=== PATIENT | female | born 1990 | race Caucasian/White ===

== ENCOUNTER 2018-01-20 03:37 | Emergency (ER) | payer BC ==
[~2018-01-20] VITALS: Ht 157.5 cm; Wt 66.7 kg
[2018-01-20 03:54] VITALS: Ht 157.5 cm; Wt 66.7 kg
[2018-01-20 04:26] LABS: BASOPHIL % 0.4 % (0-2); PLATELET COUNT 400 x10^3mcL (130-400)
[2018-01-20 04:27] LABS: CALCIUM 8.9 mg/dL (8.5-10.1); CARBON DIOXIDE 21.7 mmol/L (21-32); CHLORIDE SERUM 106 mmol/L (98-107); CREATININE SERUM 0.8 mg/dL (0.6-1.0); GFR1 > 60 mL/min; GLUCOSE SERUM 108 mg/dL (74-106); POTASSIUM SERUM 4.1 mmol/L (3.5-5.1); SODIUM SERUM 141 mmol/L (136-145)
[2018-01-20 04:30] LABS: RED CELL DISTRIBUTION WIDTH 14.6 % (11.5-14.5)
[2018-01-20 04:32] LABS: ALBUMIN 3.4 g/dL (3.4-5.0); ALKALINE PHOSPHATASE 85 U/L (46-116); AST/SGOT 15 U/L (15-37); BILIRUBIN TOTAL 0.34 mg/dL (0.20-1.00); LIPASE 145 IU/L (73-393); TOTAL PROTEIN, SERUM 7.5 g/dL (6.4-8.2)
[2018-01-20 04:33] LABS: ALT/SGPT < 6.0 U/L (14-59)
[2018-01-20 05:51] LABS: UA SPECIFIC GRAVITY >=1.030 (1.005-1.035); microscopic required? YES; urine erythrocyte NEGATIVE (NEGATIVE)
[2018-01-20 08:27] VITALS: BP 107/71
== END 2018-01-20 08:27 | disposition home or self-care (01) ==
LOC: ED 03:37
PROVIDERS: Emergency Medicine
DX: N76.0 Acute vaginitis (principal); R10.13 Epigastric pain; R19.7 Diarrhea, unspecified
CPT/HCPCS: 36415; 87491; 87591; J0696; J1885; J2270; J7030; Q0092; Q0162

== ENCOUNTER 2018-06-21 19:51 | Emergency (ER) | payer BC ==
[~2018-06-21] VITALS: Ht 157.5 cm; Wt 70.3 kg
[2018-06-21 20:10] VITALS: Ht 157.5 cm; Wt 70.3 kg
[2018-06-21 22:26] VITALS: BP 119/75
== END 2018-06-21 22:26 | disposition home or self-care (01) ==
LOC: ED 19:51
DX: T21.01XA Burn of unspecified degree of chest wall, initial encounter (principal)
CPT/HCPCS: 90715; J1885; J2270; J7030